=== PATIENT | female | born 1975 | race Caucasian/White ===

== ENCOUNTER 2016-08-08 13:17 | Emergency (ER) | payer BC, OTHER ==
[~2016-08-08] VITALS: Ht 175.3 cm; Wt 109.7 kg
[2016-08-08] MEDS ORDERED: ACETAMINOPHEN 325 MG TAB PO ONE (15:15)
[2016-08-08 15:43] VITALS: BP 147/68
--- NOTE | 2016-08-08 16:18 | REP ---
Head CT without contrast: History: Left frontal/orbital trauma. Comparison study: No comparison studies. CT findings: Bone window settings demonstrate an intact bony calvarium. There is no evidence of skull fracture or incidental bony calvarial lesion. There is minimal left frontal scalp swelling. The visualized paranasal sinuses appear clear. No intraorbital abnormality is seen. On soft tissue window setting images; the lateral, third, and fourth ventricles are normal in size and position. Duncan-white differentiation pattern is normal above and below the tentorium. There are is no evidence of intracranial hemorrhage. No mass, edema, infarction, or midline shift is seen. No extra-axial fluid collection is appreciated. Impression: Minimal left frontal scalp swelling, otherwise negative noncontrast head CT. Signed by Joe Helton MD 08/08/2016 08:25 P
--- NOTE | 2016-08-08 16:31 | REP ---
CT study of the orbits without contrast: History: Frontal and orbital trauma. Findings: The left maxillary sinus is developmentally somewhat hypoplastic. Zygomatic arches are intact. Orbital margins are intact. No orbital fracture is seen. There is mild left frontal scalp swelling. Frontal sinuses are clear. No frontal sinus fracture or skull fracture is appreciated. The sphenoid and mastoid sinuses are clear. There is minimal mucosal thickening in the ethmoid air cells. No intraorbital hematoma or mass lesion is seen. Impression: Hypoplastic left maxillary sinus developmentally. Mild left frontal scalp swelling. Otherwise negative. Signed by Joe Helton MD 08/08/2016 08:25 P
== END 2016-08-08 16:04 | disposition home or self-care (01) ==
LOC: M ED 13:17
DX: S06.0X0A Concussion without loss of consciousness, initial encounter (principal); S00.83XA Contusion of other part of head, initial encounter; W22.8XXA Striking against or struck by other objects, initial encounter; Y92.099 Unspecified place in other non-institutional residence as the place of occurrence of the external cause; Y93.89 Activity, other specified; Y99.9 Unspecified external cause status

== ENCOUNTER → 2017-03-19 | Outpatient (REF) | payer OTHER | LOC: M SFHCLERA 17:39 | DX: J02.9 Acute pharyngitis, unspecified (principal) ==

== ENCOUNTER → 2021-09-11 | Outpatient (CLI) | payer OTHER | LOC: M PLAIMG 14:57 | PROVIDERS: ATTEND Physician Assistant | DX: Z53.29 Procedure and treatment not carried out because of patient's decision for other reasons (principal); N63.23 Unspecified lump in the left breast, lower outer quadrant ==

== ENCOUNTER → 2022-06-19 | Outpatient (REF) | payer OTHER, MEDICAID ==
[2022-06-19 18:39] LABS: APPEARANCE, URINE HAZY (CLEAR); BACTERIA, URINE AUTO 1+ (NEGATIVE); BILIRUBIN, URINE AUTO NEGATIVE (NEGATIVE); BLOOD, URINE BLOOD NEGATIVE (NEGATIVE); CALCIUM OXALATE CRYSTALS MODERATE; COLOR, URINE YELLOW (YELLOW); GLUCOSE, URINE (UA) AUTO NEGATIVE (NEGATIVE); KETONE, URINE AUTO TRACE mg/dL (NEGATIVE); LEUKOCYTE ESTERASE, URINE AUTO 2+ (NEGATIVE); NITRITE, URINE AUTO NEGATIVE (NEGATIVE); PROTEIN, URINE AUTO NEGATIVE (NEGATIVE); RBC, URINE AUTO 2 /HPF (0-3); SPECIFIC GRAVITY URINE AUTO 1.024 (1.002-1.035); SQUAMOUS EPITHELIAL CELL UR AU 2 /HPF (0-6); UROBILINOGEN, URINE AUTO 0.2 mg/dL (0.0-2.0); WBC, URINE AUTO 70 /HPF (0-3)
== END ==
LOC: M SMT 17:52
PROVIDERS: ATTEND Urology
DX: N39.3 Stress incontinence (female) (male) (principal)

== ENCOUNTER → 2022-12-20 | Outpatient (CLI) | payer OTHER, SELFPAY ==
[2022-12-20 09:24] LABS: HEMATOCRIT 42.9 % (36.0-47.0); HEMOGLOBIN 14.4 g/dl (12.0-15.5); MEAN CORPUSCULAR HEMOGLOBIN 29.8 pg (27.0-33.0); MEAN CORPUSCULAR HGB CONC 33.6 g/dl (32.0-36.5); MEAN CORPUSCULAR VOLUME 88.6 fl (80.0-96.0); PLATELET COUNT, AUTOMATED 277 10^3/uL (150-450); RED BLOOD COUNT 4.84 10^6/uL (4.00-5.40); WHITE BLOOD COUNT 9.7 10^3/uL (4.0-10.0)
[2022-12-20 09:48] LABS: ALBUMIN 3.8 G/DL (3.2-5.2); ALKALINE PHOSPHATASE 88 U/L (46-116); ALT/SGPT 23 U/L (7.0-40); AST/SGOT 12 U/L (<34); BILIRUBIN,TOTAL 0.3 MG/DL (0.3-1.2); BLOOD UREA NITROGEN 15 MG/DL (9-23); CALCIUM LEVEL 9.5 MG/DL (8.5-10.1); CARBON DIOXIDE LEVEL 25 MMOL/L (20-31); CHLORIDE LEVEL 107 MMOL/L (98-107); CREATININE FOR GFR 0.59 MG/DL (0.55-1.30); GLOMERULAR FILTRATION RATE > 60.0 (>58); GLUCOSE, FASTING 95 MG/DL (60-100); POTASSIUM SERUM 4.2 MMOL/L (3.5-5.1); SODIUM LEVEL 141 MMOL/L (136-145); TOTAL PROTEIN 6.7 G/DL (5.7-8.2)
== END ==
LOC: M RAD 08:16
PROVIDERS: ATTEND Urology
DX: Z01.818 Encounter for other preprocedural examination (principal); N39.3 Stress incontinence (female) (male)

== ENCOUNTER → 2023-01-16 | Outpatient (REF) | payer OTHER ==
[~2023-01-16] MED LIST: CEPH500C PO; ERGO500029 PO; HYDR-3713 PO; OXYB15TA14 PO; ZOLO100T PO
[2023-01-16 17:56] LABS: APPEARANCE, URINE CLEAR (CLEAR); BACTERIA, URINE AUTO NEGATIVE (NEGATIVE); BILIRUBIN, URINE AUTO NEGATIVE (NEGATIVE); BLOOD, URINE BLOOD 1+ (NEGATIVE); COLOR, URINE YELLOW (YELLOW); GLUCOSE, URINE (UA) AUTO NEGATIVE (NEGATIVE); KETONE, URINE AUTO NEGATIVE (NEGATIVE); LEUKOCYTE ESTERASE, URINE AUTO 2+ (NEGATIVE); MUCUS, URINE SMALL (NEGATIVE); NITRITE, URINE AUTO NEGATIVE (NEGATIVE); PROTEIN, URINE AUTO NEGATIVE (NEGATIVE); RBC, URINE AUTO 7 /HPF (0-3); SPECIFIC GRAVITY URINE AUTO 1.008 (1.002-1.035); SQUAMOUS EPITHELIAL CELL UR AU 1 /HPF (0-6); UROBILINOGEN, URINE AUTO 0.2 mg/dL (0.0-2.0); WBC, URINE AUTO 29 /HPF (0-3)
== END ==
LOC: M SMT 17:02
PROVIDERS: ATTEND Urology
DX: N39.3 Stress incontinence (female) (male) (principal)

== ENCOUNTER 2023-01-17 08:02 | Day surgery (SDC) | payer OTHER ==
[~2023-01-17] VITALS: Ht 175.3 cm; Wt 103.1 kg
[~2023-01-17 08:02] MED LIST changes: -CEPH500C PO; -HYDR-3713 PO; +ceFAZolin SOD 2 GM in IV 1 EA IV ONE
[2023-01-17] MEDS ORDERED: LR 1,000 ML IV SCH ×2 (08:10→12:30)
[2023-01-17] MEDS ORDERED: LIDOCAINE 2% 100MG/5ML SDV (FOR ANES.) As Ordered ONE (09:19)
[2023-01-17] MEDS ORDERED: fentaNYL 100 MCG/2 ML INJECTION As Ordered ONE (09:19)
[2023-01-17] MEDS ORDERED: propofoL 200 MG/20 ML VIAL As Ordered ONE ×2 (09:19→09:21)
[2023-01-17] MEDS ORDERED: MIDAZOLAM INJ 2MG/2ML VIAL As Ordered ONE (09:19)
[2023-01-17] MEDS ORDERED: ACETAMINOPHEN 1000MG 100ML IV BAG As Ordered ONE (10:14)
[2023-01-17] MEDS ORDERED: LIDOCAINE W/EPINEPHRINE 1% 20ML VIAL As Ordered ONE ×2 (10:14→11:27)
[2023-01-17] MEDS ORDERED: ONDANSETRON 4MG 2ML VIAL As Ordered ONE (10:21)
[2023-01-17] MEDS ORDERED: METOCLOPRAMIDE INJ 10MG/2ML VIAL As Ordered ONE (10:21)
[2023-01-17] MEDS ORDERED: KETOROLAC 60MG 2ML VIAL As Ordered ONE (10:21)
[2023-01-17] MEDS ORDERED: ePHEDrine SULFATE 25 MG/5 ML(5MG/ML) SYRINGE As Ordered ONE (10:32)
[2023-01-17] MEDS ORDERED: oxyCODONE 5MG TAB PO PRN (12:30)
[2023-01-17] MEDS ORDERED: ONDANSETRON 4MG 2ML VIAL IV PRN (12:30)
[2023-01-17] MEDS ORDERED: fentaNYL 100 MCG/2 ML INJECTION IV PRN (12:30)
[2023-01-17] MEDS ORDERED: HYDR-3713 PO (12:35)
[2023-01-17] MEDS ORDERED: CEPH500C PO (12:35)
[2023-01-17] MEDS: HYDROMORPHONE HCL 0.5 MG/ 0.5 ML SYRINGE IV PRN ×4 (12:42→13:05)
[2023-01-17 15:30] VITALS: BP 144/82; TEMP 97.5; O2SAT 95
== END 2023-01-17 15:35 | disposition home or self-care (01) ==
LOC: M SDC 08:02
PROVIDERS: ATTEND Urology
DX: N39.3 Stress incontinence (female) (male) (principal); N81.10 Cystocele, unspecified; N81.6 Rectocele; F17.210 Nicotine dependence, cigarettes, uncomplicated; F32.A Depression, unspecified; Z79.899 Other long term (current) drug therapy; Z90.710 Acquired absence of both cervix and uterus
CPT/HCPCS: 57260; 57288; 88302; C1769; C1771; J0131; J0690; J1100; J1170; J1885; J2250; J2405; J2765; J3010

== ENCOUNTER → 2023-08-19 | Outpatient (REF) | payer OTHER ==
[~2023-08-19] MED LIST changes: +CEPH500C PO; +HYDR-3713 PO; -ceFAZolin SOD 2 GM in IV 1 EA IV ONE
[2023-08-19 21:36] LABS: APPEARANCE, URINE HAZY (CLEAR); BACTERIA, URINE AUTO NEGATIVE (NEGATIVE); BILIRUBIN, URINE AUTO NEGATIVE (NEGATIVE); BLOOD, URINE BLOOD NEGATIVE (NEGATIVE); COLOR, URINE YELLOW (YELLOW); GLUCOSE, URINE (UA) AUTO NEGATIVE (NEGATIVE); KETONE, URINE AUTO NEGATIVE (NEGATIVE); LEUKOCYTE ESTERASE, URINE AUTO 1+ (NEGATIVE); MUCUS, URINE SMALL (NEGATIVE); NITRITE, URINE AUTO NEGATIVE (NEGATIVE); PROTEIN, URINE AUTO NEGATIVE (NEGATIVE); RBC, URINE AUTO 3 /HPF (0-3); SPECIFIC GRAVITY URINE AUTO 1.015 (1.002-1.035); SQUAMOUS EPITHELIAL CELL UR AU 1 /HPF (0-6); UROBILINOGEN, URINE AUTO 0.2 mg/dL (0.0-2.0); WBC, URINE AUTO 40 /HPF (0-3)
== END ==
LOC: M LAB REF 20:35
PROVIDERS: ATTEND Physician Assistant
DX: N39.0 Urinary tract infection, site not specified (principal)